=== PATIENT | female | born 1980 | race Caucasian/White ===

== ENCOUNTER 2017-09-01 22:06 | Emergency (ER) | payer OTHER ==
[~2017-09-01] VITALS: Ht 157.5 cm; Wt 84.8 kg
[2017-09-02] MEDS ORDERED: PHENERGAN25 MG PO (06:25)
[2017-09-02] MEDS ORDERED: ZANTAC300 MG PO (06:25)
== END 2017-09-02 06:22 | disposition home or self-care (01) ==
LOC: ER 22:06
DX: K52.9 Noninfective gastroenteritis and colitis, unspecified (principal)

== ENCOUNTER 2017-11-12 14:51 | Inpatient (IN) | payer OTHER ==
[~2017-11-12] VITALS: Ht 157.5 cm; Wt 86.6 kg
[~2017-11-12 14:51] MED LIST: PHENERGAN25 MG PO; ZANTAC300 MG PO
== END 2017-11-22 19:02 | disposition home or self-care (01) | DRG 766 ==
LOC: LDR 11-19 09:00 → O/R 11-19 09:40 → OB/GYN 11-19 09:40 → LDR 11-19 14:51 → OB/GYN 11-20 14:16
PROVIDERS: Obstetrics & Gynecology
PROC: 0UL70ZZ Occlusion of Bilateral Fallopian Tubes, Open Approach (ICD-10-PCS; 2017-11-19)
PROC: 4A1HXCZ Monitoring of Products of Conception, Cardiac Rate, External Approach (ICD-10-PCS; 2017-11-19)
PROC: 10D00Z1 Extraction of Products of Conception, Low, Open Approach (ICD-10-PCS; principal; 2017-11-19 09:00)
DX: O98.82 Other maternal infectious and parasitic diseases complicating childbirth (principal); B95.1 Streptococcus, group B, as the cause of diseases classified elsewhere; Z3A.39 39 weeks gestation of pregnancy; Z37.0 Single live birth; Z30.2 Encounter for sterilization